=== PATIENT | male | born 1965 | race Two or more races ===

== ENCOUNTER 2017-05-24 08:56 | Emergency (ER) | payer OTHER ==
[~2017-05-24] VITALS: Ht 182.9 cm; Wt 113.4 kg
[~2017-05-24 08:56] MED LIST: ALBUTEROL2.5 MG/3 M IH; ATRIPLA TABLET1 TAB; ATROVENT 00.5 MG/2.5 IH; BUCALSEP SPRAY30 ML MM; CEFTIN250 MG PO; LIPITOR20 MG; MEDROL4 MG PO; REYATAZ100 MG; TESSALON PERLE100 M1 PO; ULTRACET PO; VASOTEC10 MG PO; VASOTEC5 MG; VENTOLIN17 GM
== END 2017-05-24 11:50 | disposition home or self-care (01) ==
LOC: ER 08:56
DX: M79.632 Pain in left forearm (principal)

== ENCOUNTER 2017-05-30 12:52 | Emergency (ER) | payer OTHER ==
[~2017-05-30] VITALS: Ht 182.9 cm; Wt 113.4 kg
== END 2017-05-30 16:05 | disposition home or self-care (01) ==
LOC: ER 12:52
DX: S00.571A Other superficial bite of lip, initial encounter (principal); W54.0XXA Bitten by dog, initial encounter; Y93.89 Activity, other specified; Y92.89 Other specified places as the place of occurrence of the external cause; Y99.8 Other external cause status; M25.512 Pain in left shoulder

== ENCOUNTER 2018-05-01 14:24 | Emergency (ER) | payer OTHER ==
[~2018-05-01] VITALS: Ht 182.9 cm; Wt 120.2 kg
== END 2018-05-01 18:12 | disposition home or self-care (01) ==
LOC: ER 14:24
DX: B34.9 Viral infection, unspecified (principal)

== ENCOUNTER 2019-01-12 09:06 | Emergency (ER) | payer OTHER ==
[~2019-01-12] VITALS: Ht 182.9 cm; Wt 131.5 kg
[2019-01-12] MEDS ORDERED: FLAGYL500MG PO (12:50)
[2019-01-12] MEDS ORDERED: PEPCID AC20 MG PO (12:50)
[2019-01-12] MEDS ORDERED: INTESTINEX680 M1 PO (12:50)
[2019-01-12] MEDS ORDERED: CIPRO500 MG PO (12:50)
== END 2019-01-12 16:36 | disposition home or self-care (01) ==
LOC: ER 09:06
DX: K57.90 Diverticulosis of intestine, part unspecified, without perforation or abscess without bleeding (principal); N39.0 Urinary tract infection, site not specified

== ENCOUNTER 2020-06-11 12:47 | Emergency (ER) | payer OTHER ==
[~2020-06-11] VITALS: Ht 182.9 cm; Wt 120.7 kg
[~2020-06-11 12:47] MED LIST changes: +CIPRO500 MG PO; +FLAGYL500MG PO; +INTESTINEX680 M1 PO; +PEPCID AC20 MG PO
[2020-06-11] MEDS ORDERED: ZESTRIL20 MG (13:13)
== END 2020-06-11 15:42 | disposition home or self-care (01) ==
LOC: ER 12:47
DX: M94.0 Chondrocostal junction syndrome [Tietze] (principal)

== ENCOUNTER 2020-10-22 10:12 | Emergency (ER) | payer OTHER ==
[~2020-10-22] VITALS: Ht 182.9 cm; Wt 117.9 kg
[~2020-10-22 10:12] MED LIST changes: +ZESTRIL20 MG
[2020-10-22] MEDS ORDERED: DERMACINRX THE135 GM (10:58)
[2020-10-22] MEDS ORDERED: FLUCONAZOLE100 MG (10:59)
== END 2020-10-22 14:56 | disposition home or self-care (01) ==
LOC: ER 10:12
DX: L25.9 Unspecified contact dermatitis, unspecified cause (principal); R21 Rash and other nonspecific skin eruption

== ENCOUNTER 2021-04-05 08:50 | Emergency (ER) | payer OTHER ==
[~2021-04-05] VITALS: Ht 182.9 cm; Wt 165.6 kg
[~2021-04-05 08:50] MED LIST changes: +DERMACINRX THE135 GM; +FLUCONAZOLE100 MG
== END 2021-04-05 13:45 | disposition home or self-care (01) ==
LOC: ER 08:50
DX: R35.0 Frequency of micturition (principal)

== ENCOUNTER 2021-05-24 12:28 | Emergency (ER) | payer OTHER ==
[~2021-05-24] VITALS: Ht 182.9 cm; Wt 120.2 kg
[2021-05-24] MEDS ORDERED: LIPITOR40 MG PO (12:41)
[2021-05-24] MEDS ORDERED: SINGULAIR 10MG10 MG PO (17:00)
[2021-05-24] MEDS ORDERED: FLONASE ALLERG9.9 ML NASAL (17:00)
[2021-05-24] MEDS ORDERED: MUCINEX DM ER1 EAC1 PO (17:00)
[2021-05-24] MEDS ORDERED: CETIRIZINE HCL10 MG PO (17:00)
[2021-05-24] MEDS ORDERED: PROMETH-CODEIN 65 ML PO (17:00)
== END 2021-05-24 17:22 ==
LOC: ER 12:28
DX: R05.9 Cough, unspecified (principal); R09.82 Postnasal drip

== ENCOUNTER 2023-01-18 08:03 | Emergency (ER) | payer OTHER ==
[~2023-01-18] VITALS: Ht 182.9 cm; Wt 124.7 kg
[~2023-01-18 08:03] MED LIST changes: +CETIRIZINE HCL10 MG PO; +FLONASE ALLERG9.9 ML NASAL; +LIPITOR40 MG PO; +MUCINEX DM ER1 EAC1 PO; +PROMETH-CODEIN 65 ML PO; +SINGULAIR 10MG10 MG PO
[2023-01-18 10:29] LABS: HEMATOCRIT 40.4 % (39.0-48.0); HEMOGLOBIN 13.5 g/dL (13-16.00); MEAN CORPUSCULAR HGB CONC 33.3 g/dl (32.0-36.0); PLATELET COUNT 183 K/uL (150-450); RED BLOOD COUNT 4.21 M/uL (4.00-6.00); RED CELL DISTRIBUTION WIDTH 13.2 % (11.5-14.5)
== END 2023-01-18 12:17 | disposition home or self-care (01) ==
LOC: ER 08:03
PROVIDERS: General Practice
DX: J10.1 Influenza due to other identified influenza virus with other respiratory manifestations (principal); Z20.822 Contact with and (suspected) exposure to COVID-19

== ENCOUNTER 2023-03-07 09:04 | Emergency (ER) | payer OTHER ==
[~2023-03-07] VITALS: Ht 182.9 cm; Wt 124.7 kg
[2023-03-07] MEDS ORDERED: LIPITOR40 M1 PO (10:10)
[2023-03-07] MEDS ORDERED: ZESTRIL2.5 MG PO (10:11)
[2023-03-07] MEDS ORDERED: QUETIAPINE FUM400 M1 (10:12)
[2023-03-07] MEDS ORDERED: LOVAZA1 GM PO (10:12)
[2023-03-07] MEDS ORDERED: GEMFIBROZIL600 MG (10:12)
[2023-03-07] MEDS ORDERED: REYATAZ PO (10:12)
[2023-03-07] MEDS ORDERED: TRAZODONE HCL5 GM MC (10:12)
[2023-03-07] MEDS ORDERED: FERROUS SU15 MG/1 ML (10:13)
[2023-03-07] MEDS ORDERED: ZIAGEN300 MG (10:13)
[2023-03-07] MEDS ORDERED: ANDROGEL75 GM (10:14)
[2023-03-07] MEDS ORDERED: EPSICON (10:14)
[2023-03-07] MEDS ORDERED: VENTOLIN HFA18 GM (10:14)
[2023-03-07] MEDS ORDERED: CITALOPRAM20 MG/10 M (10:14)
[2023-03-07 12:13] LABS: HEMATOCRIT 39.1 % (39.0-48.0); HEMOGLOBIN 13.4 g/dL (13-16.00); MEAN CORPUSCULAR HEMOGLOBIN 32.6 pg (27.00-32.0); MEAN CORPUSCULAR HGB CONC 34.3 g/dl (32.0-36.0); PLATELET COUNT 198 K/uL (150-450); RED BLOOD COUNT 4.12 M/uL (4.00-6.00); RED CELL DISTRIBUTION WIDTH 13.5 % (11.5-14.5)
[2023-03-07 14:04] LABS: ALBUMIN 4.1 gm/dL (3.4-5.0); BILIRUBIN TOTAL 0.91 mg/dL (0.3-1.2); CALCIUM 9.6 mg/dL (8.5-10.1); CREATININE SERUM 1.42 mg/dL (0.70-1.30); GFR 51.03; GLOBULINA 3.6 G/DL (2.4-3.5); POTASSIUM 4.85 mEq/L (3.5-5.1); TOTAL PROTEIN 7.7 gm/dL (6.4-8.2)
[2023-03-07] MEDS ORDERED: SINGULAIR10 MG PO (14:36)
[2023-03-07] MEDS ORDERED: BENZONATATE200 M1 PO (14:36)
[2023-03-07] MEDS ORDERED: ALBUTEROL2.5 MG/3 M IH (14:36)
[2023-03-07] MEDS ORDERED: ZYRTEC10 MG PO (14:36)
== END 2023-03-07 14:46 | disposition home or self-care (01) ==
LOC: ER 09:04
PROVIDERS: General Practice
DX: R05.2 Subacute cough (principal)

== ENCOUNTER 2023-12-08 17:49 | Emergency (ER) | payer OTHER ==
[~2023-12-08] VITALS: Ht 182.9 cm; Wt 133.8 kg
[~2023-12-08 17:49] MED LIST changes: +ANDROGEL75 GM; +BENZONATATE200 M1 PO; +CITALOPRAM20 MG/10 M; +EPSICON; +FERROUS SU15 MG/1 ML; +GEMFIBROZIL600 MG; +LIPITOR40 M1 PO; +LOVAZA1 GM PO; +QUETIAPINE FUM400 M1; +REYATAZ PO; +SINGULAIR10 MG PO; +TRAZODONE HCL5 GM MC; +VENTOLIN HFA18 GM; +ZESTRIL2.5 MG PO; +ZIAGEN300 MG; +ZYRTEC10 MG PO
[2023-12-08] MEDS ORDERED: CEFTRIAXONE SODIUM 1,000 MG VIAL IM STA (19:30)
== END 2023-12-08 20:18 | disposition home or self-care (01) ==
LOC: ER 17:50
DX: K05.219 Aggressive periodontitis, localized, unspecified severity (principal)